=== PATIENT | female | born 1960 | race Caucasian/White ===

== ENCOUNTER → 2016-07-03 | Outpatient (REF) | payer MEDICARE, MEDICAID ==
[~2016-07-03] MED LIST: ACET-71 PO; AZEL0.055; BENZ100C5 PO; CLAR5TAB PO; CLEO300C2 PO; CLIN1CAP5 PO; DRIS50002 PO; IBUP800T23 PO; LEVO125T41 PO; LEVO150T42 PO; LORT5TAB PO; OMEP40CA2 PO; PANT40TA2 PO; PERI0.126 MT; PHEN30TA37 PO; PRAV40TA2 PO; PROA1AER INH; SERT-138 PO; SUCR1TAB56 PO; SYMB80INH INH; [UNRECOGNIZED DRUG - CODE] TOP
[2016-07-03 16:32] LABS: MEAN CORPUSCULAR HEMOGLOBIN 29.9 pg (27.0-33.0); MEAN CORPUSCULAR HGB CONC 32.1 g/dl (32.0-36.5); MEAN CORPUSCULAR VOLUME 93.4 fl (80.0-96.0); RED CELL DISTRIBUTION WIDTH 13.2 % (11.5-14.5); WHITE BLOOD COUNT 8.1 K/mm3 (4.0-10.0)
[2016-07-03 17:47] LABS: ALBUMIN/GLOBULIN RATIO 0.77 (1.00-1.93); ALKALINE PHOSPHATASE 141 U/L (45-117); ALT/SGPT 27 U/L (12-78); ANION GAP 5 MEQ/L (8-16); AST/SGOT 15 U/L (15-37); BILIRUBIN,TOTAL 0.2 MG/DL (0.2-1.0); BLOOD UREA NITROGEN 8 MG/DL (7-18); CALCIUM LEVEL 7.9 MG/DL (8.5-10.1); CARBON DIOXIDE LEVEL 29 MEQ/L (21-32); CHLORIDE LEVEL 106 MEQ/L (98-107); CHOLESTEROL LEVEL 193 MG/DL (<200); CREATININE FOR GFR 0.63 MG/DL (0.55-1.02); GLOMERULAR FILTRATION RATE > 60.0 (>51); GLUCOSE, FASTING 78 MG/DL (70-105); PHENOBARBITAL LEVEL 33.7 UG/ML (15.0-40.0); POTASSIUM SERUM 4.5 MEQ/L (3.5-5.1); SODIUM LEVEL 140 MEQ/L (136-145); TOTAL PROTEIN 6.9 GM/DL (6.4-8.2); TRIGLYCERIDES LEVEL 63 MG/DL (<150)
== END ==
LOC: M SFHCCLAY 10:26
PROVIDERS: ATTEND Nurse Practitioner Family
DX: K27.9 Peptic ulcer, site unspecified, unspecified as acute or chronic, without hemorrhage or perforation (principal); E78.4 Other hyperlipidemia; G40.909 Epilepsy, unspecified, not intractable, without status epilepticus; E03.9 Hypothyroidism, unspecified; E55.9 Vitamin D deficiency, unspecified

== ENCOUNTER → 2016-07-24 | Outpatient (CLI) | payer MEDICARE, MEDICAID ==
--- NOTE | 2016-07-24 08:26 | REPMRS ---
Patient History The patient states she had a clinical breast exam in 07/17 Patient is postmenopausal and is nulliparous. Family history of breast cancer in paternal aunt, pancreatic cancer in brother at age 57, and prostate cancer in brother at age 57. Digital Woman Screen Mammo: July 24, 2016 - Exam #: [id number] Bilateral CC and MLO view(s) were taken. Technologist: Mary Schwartz, Technologist Prior study comparison: June 07, 2015, digital woman screen mammo performed at [facility]. May 19, 2014, digital woman screen mammo performed at [facility]. FINDINGS: There are scattered fibroglandular densities. There has been no change in the appearance of the mammogram from the prior studies. There is a mild amount of scattered fibroglandular density which is fairly symmetric. There is no interval development of dominant mass, architectural distortion, or clustered microcalcification suggestive of malignancy. ASSESSMENT: BI-RADS/ACR category 1 mammogram. Negative. Recommendation Routine screening mammogram in 1 year (for women over age 40). This mammogram was interpreted with the aid of an FDA-approved computer-aided dectection system. Electronically Signed By: Go Brooke MD 07/24/16 0826
== END ==
LOC: M WHC 07:44
PROVIDERS: ATTEND Nurse Practitioner Family
DX: Z12.31 Encounter for screening mammogram for malignant neoplasm of breast (principal); Z78.0 Asymptomatic menopausal state

== ENCOUNTER → 2016-10-16 | Outpatient (REF) | payer MEDICARE, MEDICAID ==
[~2016-10-16] MED LIST changes: -ACET-71 PO; +ACET1TAB16 PO; +CLIN150C14 PO; -CLIN1CAP5 PO; +IBUP1TAB7 PO; -IBUP800T23 PO; -PROA1AER INH; +PROAAER10 INH
[2016-10-16 12:50] LABS: CALCIUM LEVEL 8.8 MG/DL (8.5-10.1)
== END ==
LOC: M SFHCCLAY 08:05
PROVIDERS: ATTEND Nurse Practitioner Family
DX: E03.9 Hypothyroidism, unspecified (principal); E78.4 Other hyperlipidemia; E55.9 Vitamin D deficiency, unspecified

== ENCOUNTER → 2017-03-12 | Outpatient (REF) | payer MEDICARE, MEDICAID ==
[2017-03-12 17:59] LABS: TOTAL 25(OH) VITAMIN D 64.5 NG/ML (30.0-100.0)
[2017-03-12 18:11] LABS: CHOLESTEROL LEVEL 254 MG/DL (<200); CHOLESTEROL RISK RATIO 3.298 (<5); HDL CHOLESTEROL 77 MG/DL (>40); LDL CHOLESTEROL 162.4 MG/DL (<100); NON-HDL-C 177 MG/DL; THYROID STIMULATING HORMONE 0.575 uIU/ML (0.358-3.740); TRIGLYCERIDES LEVEL 73 MG/DL (<150)
== END ==
LOC: M SFHCCLAY 10:07
DX: E78.4 Other hyperlipidemia (principal); E03.9 Hypothyroidism, unspecified; E55.9 Vitamin D deficiency, unspecified
CPT/HCPCS: 84443

== ENCOUNTER → 2017-04-22 | Outpatient (CLI) | payer MEDICARE, MEDICAID | LOC: M CLY 13:12 | DX: R05 Cough (principal) | CPT/HCPCS: 71046; G0463 ==

== ENCOUNTER → 2017-07-21 | Outpatient (REF) | payer MEDICARE, MEDICAID ==
[2017-07-21 11:44] LABS: HEMATOCRIT 36.4 % (36.0-47.0); HEMOGLOBIN 11.9 g/dl (12.0-15.5); MEAN CORPUSCULAR HEMOGLOBIN 30.4 pg (27.0-33.0); MEAN CORPUSCULAR HGB CONC 32.7 g/dl (32.0-36.5); MEAN CORPUSCULAR VOLUME 92.9 fl (80.0-96.0); PLATELET COUNT, AUTOMATED 285 10^3/uL (150-450); RED BLOOD COUNT 3.92 10^6/uL (4.00-5.40); RED CELL DISTRIBUTION WIDTH 15.8 % (11.5-14.5); WHITE BLOOD COUNT 8.1 10^3/uL (4.0-10.0)
[2017-07-21 11:59] LABS: TOTAL 25(OH) VITAMIN D 22.4 NG/ML (30.0-100.0)
[2017-07-21 12:51] LABS: ALBUMIN 3.6 GM/DL (3.2-5.2); ALKALINE PHOSPHATASE 101 U/L (45-117); ALT/SGPT 18 U/L (12-78); ANION GAP 6 MEQ/L (8-16); AST/SGOT 26 U/L (7-37); BILIRUBIN,TOTAL 0.3 MG/DL (0.2-1.0); BLOOD UREA NITROGEN 13 MG/DL (7-18); CALCIUM LEVEL 8.7 MG/DL (8.5-10.1); CARBON DIOXIDE LEVEL 30 MEQ/L (21-32); CHLORIDE LEVEL 103 MEQ/L (98-107); CHOLESTEROL LEVEL 220 MG/DL (<200); CHOLESTEROL RISK RATIO 3.188 (<5); CREATININE FOR GFR 0.85 MG/DL (0.55-1.30); GLOMERULAR FILTRATION RATE > 60.0 (>51); GLUCOSE, FASTING 79 MG/DL (70-100); HDL CHOLESTEROL 69 MG/DL (>40); LDL CHOLESTEROL 134.2 MG/DL (<100); NON-HDL-C 151 MG/DL; PHENOBARBITAL LEVEL 28.3 UG/ML (15.0-40.0); SODIUM LEVEL 139 MEQ/L (136-145); THYROID STIMULATING HORMONE 0.995 uIU/ML (0.358-3.740); TOTAL PROTEIN 7.6 GM/DL (6.4-8.2); TRIGLYCERIDES LEVEL 84 MG/DL (<150)
== END ==
LOC: M SFHCCLAY 08:47
DX: K27.9 Peptic ulcer, site unspecified, unspecified as acute or chronic, without hemorrhage or perforation (principal); E78.4 Other hyperlipidemia; G40.909 Epilepsy, unspecified, not intractable, without status epilepticus; E03.9 Hypothyroidism, unspecified; E55.9 Vitamin D deficiency, unspecified
CPT/HCPCS: 84443

== ENCOUNTER → 2017-08-14 | Outpatient (CLI) | payer MEDICARE, MEDICAID | LOC: M WHC 07:50 | DX: Z12.31 Encounter for screening mammogram for malignant neoplasm of breast (principal) | CPT/HCPCS: 77067 ==

== ENCOUNTER → 2018-01-14 | Outpatient (CLI) | payer MEDICARE, MEDICAID ==
[~2018-01-14] MED LIST changes: -ACET1TAB16 PO; -AZEL0.055; -BENZ100C5 PO; -CLAR5TAB PO; -CLEO300C2 PO; -CLIN150C14 PO; -DRIS50002 PO; -IBUP1TAB7 PO; -LEVO125T41 PO; -LEVO150T42 PO; -LORT5TAB PO; -OMEP40CA2 PO; -PANT40TA2 PO; -PERI0.126 MT; -PHEN30TA37 PO; -PRAV40TA2 PO; -PROAAER10 INH; +PROHANCE 279.3MG/ML 15ML VIAL (A9576) As Ordered; -SERT-138 PO; -SUCR1TAB56 PO; -SYMB80INH INH; -[UNRECOGNIZED DRUG - CODE] TOP
== END ==
LOC: M RAD 09:23
DX: K85.90 Acute pancreatitis without necrosis or infection, unspecified (principal); K44.9 Diaphragmatic hernia without obstruction or gangrene; K80.50 Calculus of bile duct without cholangitis or cholecystitis without obstruction
CPT/HCPCS: A9576

== ENCOUNTER → 2018-03-20 | Outpatient (REF) | payer MEDICARE, MEDICAID ==
[~2018-03-20] MED LIST changes: +ACET1TAB16 PO; +AZEL0.055; +BENZ-18 PO; +CLAR5TAB PO; +CLEO300C2 PO; +CLIN150C14 PO; +DRIS50003 PO; +IBUP1TAB7 PO; +LEVO125T41 PO; +LEVO150T42 PO; +LORT5TAB PO; +OMEP40CA2 PO; +PANT40TA3 PO; +PERI0.126 MT; +PHEN30TA37 PO; +PRAV40TA2 PO; +PROAAER10 INH; -PROHANCE 279.3MG/ML 15ML VIAL (A9576) As Ordered; +SERT-138 PO; +SUCR1TAB56 PO; +SYMB80INH INH; +[UNRECOGNIZED DRUG - CODE] TOP
[2018-03-20 12:24] LABS: BASO # 0.1 10^3/uL (0.0-0.2); BASO % 0.7 % (0.0-1.0); EOS # 0.1 10^3/uL (0.0-0.50); EOS % 0.9 % (0.0-3.0); HEMOGLOBIN 11.6 g/dl (12.0-15.5); LYMPH # 2.8 10^3/uL (1.5-4.5); MEAN CORPUSCULAR HEMOGLOBIN 29.7 pg (27.0-33.0); MEAN CORPUSCULAR HGB CONC 33.1 g/dl (32.0-36.5); MEAN CORPUSCULAR VOLUME 89.5 fl (80.0-96.0); MONO # 1.4 10^3/uL (0.0-0.8); MONO % 18.2 % (0.0-5.0); NEUTROPHILS # 3.1 10^3/uL (1.8-7.7); NEUTROPHILS % 42.1 % (36.0-66.0); PLATELET COUNT, AUTOMATED 287 10^3/uL (150-450); RED BLOOD COUNT 3.91 10^6/uL (4.00-5.40); WHITE BLOOD COUNT 7.4 10^3/uL (4.0-10.0)
[2018-03-20 12:28] LABS: ALBUMIN 3.6 GM/DL (3.2-5.2); ALT/SGPT 13 U/L (12-78); AMYLASE 98 U/L (25-115); BILIRUBIN,DIRECT < 0.1 MG/DL (0.0-0.2); BILIRUBIN,TOTAL 0.3 MG/DL (0.2-1.0); BLOOD UREA NITROGEN 18 MG/DL (7-18); CALCIUM LEVEL 8.8 MG/DL (8.5-10.1); CARBON DIOXIDE LEVEL 32 MEQ/L (21-32); CHLORIDE LEVEL 101 MEQ/L (98-107); CREATININE FOR GFR 0.87 MG/DL (0.55-1.30); GLOMERULAR FILTRATION RATE > 60.0 (>51); GLUCOSE, FASTING 76 MG/DL (70-100); LIPASE 222 U/L (73-393); POTASSIUM SERUM 4.5 MEQ/L (3.5-5.1); SODIUM LEVEL 136 MEQ/L (136-145); TOTAL PROTEIN 7.4 GM/DL (6.4-8.2)
[2018-03-20 12:34] LABS: INR 1.01; PROTHROMBIN TIME 13.4 SECONDS (12.1-14.4)
== END ==
LOC: M LABDRAWC 11:15
PROVIDERS: ATTEND Internal Medicine Gastroenterology
DX: R10.84 Generalized abdominal pain (principal)

== ENCOUNTER → 2018-03-25 | Outpatient (CLI) | payer MEDICARE, MEDICAID ==
[~2018-03-25] MED LIST changes: +GASTROGRAFIN SOLUTION 30ML (Q9963) As Ordered ONE; +ISOVUE-370 76% 100ML VIAL (Q9967) As Ordered ONE; +MONT10TA2 PO; +MULTCAP PO; +TYLETAB14 PO; +ZOFR4TAB16 PO
--- NOTE | 2018-03-26 08:33 | REP ---
Clinical: Generalized abdominal pain. Technique: Axial contrast enhanced images from the lung bases to the pubic symphysis using oral (per protocol) and 100 ml Isovue 370 intravenous contrast material with coronal and sagittal re-formations. Comparison: 12/09/2017. Findings: Lung bases are clear. Small hiatal hernia suggested at the gastroesophageal junction. Liver includes stable 2 cm hypodensity within the periphery of the left lobe likely representing cyst. The patient is status post cholecystectomy with intrahepatic and extrahepatic biliary ductal dilatation which may be compensatory. Atrophic appearance of the spleen noted. Pancreas, bilateral adrenal glands and kidneys are normal. The enteric system is without obstruction or acute inflammatory process. Pelvis demonstrates normal bladder and age-appropriate uterus/adnexa. No ascites. No free air. No adenopathy. Abdominal aorta without aneurysm or dissection. Musculoskeletal structures demonstrate degenerative changes without focal osseous abnormality. Impression: 1. 2 cm hepatic hypodensity cannot be further characterized based on examination and may warrant ultrasound evaluation. 2. Intrahepatic and extrahepatic biliary ductal dilatation with the common bile duct measuring up to approximately 2 cm may warrant ultrasound examination to exclude choledocholithiasis. 3. Stable nonacute findings as described above including hiatal hernia and atrophic appearance to the spleen. Electronically Signed by Nain Armneta MD 03/26/2018 08:24 A
== END ==
LOC: M RAD 14:32
PROVIDERS: ATTEND Internal Medicine Gastroenterology
DX: R93.5 Abnormal findings on diagnostic imaging of other abdominal regions, including retroperitoneum (principal); K44.9 Diaphragmatic hernia without obstruction or gangrene; R10.84 Generalized abdominal pain
CPT/HCPCS: 74177; Q9963; Q9967

== ENCOUNTER 2018-04-09 06:10 | Day surgery (SDC) | payer MEDICARE, MEDICAID ==
[~2018-04-09] VITALS: Ht 152.4 cm; Wt 66.7 kg
[~2018-04-09 06:10] MED LIST changes: -GASTROGRAFIN SOLUTION 30ML (Q9963) As Ordered ONE; -ISOVUE-370 76% 100ML VIAL (Q9967) As Ordered ONE
[2018-04-09] MEDS ORDERED: LR 1,000 ML IV ONE (07:00)
[2018-04-09] MEDS ORDERED: NS 1,000 ML IV ONE (07:00)
[2018-04-09] MEDS ORDERED: ISOVUE-300 61% 50ML VIAL (Q9967) As Ordered ONE (07:19)
[2018-04-09] MEDS ORDERED: MIDAZOLAM INJ 2 MG/2 ML VIAL (J2250) As Ordered ONE (07:23)
[2018-04-09] MEDS ORDERED: fentaNYL 100 MCG/2 ML INJECTION (J3010) As Ordered ONE (07:29)
[2018-04-09] MEDS ORDERED: LIDOCAINE 2% INJ 100 MG/5 ML SDV (FOR ANES.) As Ordered ONE (07:29)
[2018-04-09] MEDS ORDERED: ROCURONIUM BROMIDE 50 MG/5 ML VIAL As Ordered ONE (07:29)
[2018-04-09] MEDS ORDERED: PROPOFOL 200 MG/20 ML VIAL As Ordered ONE (07:29)
[2018-04-09] MEDS ORDERED: dexameTHASONE 4 MG/ML 1ML VIAL (J1100) As Ordered ONE (08:16)
[2018-04-09] MEDS ORDERED: ONDANSETRON 4MG/2ML VIAL (J2405) As Ordered ONE (08:16)
[2018-04-09] MEDS ORDERED: KETOROLAC 60 MG/2 ML VIAL (J1885) As Ordered ONE (08:16)
[2018-04-09] MEDS ORDERED: ePHEDrine SULFATE 25 MG/5 ML(5MG/ML) SYRINGE As Ordered ONE (08:26)
[2018-04-09] MEDS ORDERED: NEOSTIGMINE 10 MG/10 ML VIAL (J2710) As Ordered ONE (09:05)
[2018-04-09] MEDS ORDERED: GLYCOPYRROLATE INJ 0.2 MG/ML 2 ML VIAL As Ordered ONE (09:05)
[2018-04-09] MEDS ORDERED: ONDANSETRON 4MG/2ML VIAL (J2405) IV PRN (09:30)
[2018-04-09] MEDS ORDERED: fentaNYL 100 MCG/2 ML INJECTION (J3010) IV PRN (09:30)
[2018-04-09] MEDS ORDERED: NORCO, ANEXSIA 5/325MG TABLET (HYDROcodone/ACETAMINOPHEN) PO PRN (09:30)
[2018-04-09] MEDS ORDERED: LR 1,000 ML IV SCH ×2 (09:30→10:00)
--- NOTE | 2018-04-09 09:37 | ROOR ---
Patient Name: Karina Avalos Procedure Date: 04/09/2018 6:55 AM Date of : 1960 Age: 58 Room: [facility] Gender: Female Note Status: Finalized Procedure: ERCP Indications: Common bile duct stone(s), Bile duct stone(s), For therapy of bile duct stone(s) Providers: Sarbjit Rodriguez MD Referring MD: Scott Womack Jr, MD Requesting Provider: Medicines: General Anesthesia Complications: No immediate complications. Procedure: Pre-Anesthesia Assessment: - Prior to the procedure, a History and Physical was performed, and patient medications and allergies were reviewed. The patient is competent. The risks and benefits of the procedure and the sedation options and risks were discussed with the patient. All questions were answered and informed consent was obtained. Patient identification and proposed procedure were verified by the physician, the nurse and the anesthesiologist in the procedure room. Mental Status Examination: alert and oriented. Airway Examination: normal oropharyngeal airway and neck mobility. Respiratory Examination: clear to auscultation. CV Examination: normal. Prophylactic Antibiotics: The patient does not require prophylactic antibiotics. Prior Anticoagulants: The patient has taken no previous anticoagulant or antiplatelet agents. ASA Grade Assessment: II - A patient with mild systemic disease. After reviewing the risks and benefits, the patient was deemed in satisfactory condition to undergo the procedure. The anesthesia plan was to use monitored anesthesia care (MAC). Immediately prior to administration of medications, the patient was re-assessed for adequacy to receive sedatives. The heart rate, respiratory rate, oxygen saturations, blood pressure, adequacy of pulmonary ventilation, and response to care were monitored throughout the procedure. The physical status of the patient was re-assessed after the procedure. The Duodenoscope was introduced through the mouth, and advanced to the duodenum and used to inject contrast into the bile duct. The ERCP was accomplished without difficulty. The patient tolerated the procedure well. Findings: The office messenger film was normal. The esophagus was successfully intubated under direct vision. The scope was advanced to a normal major papilla in the descending duodenum without detailed examination of the pharynx, larynx and associated structures, and upper GI tract. The upper GI tract was grossly normal. 0.035 inch x 260 cm straight Hydra Jagwire was passed into the biliary tree. The short-nosed traction sphincterotome was passed over the guidewire and the bile duct was then deeply cannulated. Contrast was injected. I personally interpreted the bile duct images. Ductal flow of contrast was adequate. Image quality was adequate. Contrast extended to the entire biliary tree. The main bile duct contained multiple stones, the largest of which was 10 mm in diameter. The main bile duct was diffusely dilated, with a stone causing an obstruction. The largest diameter was 20 mm. Biliary sphincterotomy was made with a monofilament traction (standard) sphincterotome using ERBE electrocautery. There was no post-sphincterotomy bleeding. To discover objects, the biliary tree was swept with a 15 mm balloon starting at the bifurcation. Stones were large and did not come out with balloon sweep. Lithotripsy with the mechanical lithotripter was successful for stone fragmentation, but the removal of stone and debris was incomplete. One 10 Fr by 7 cm plastic stent with a single external flap and a single internal flap was placed into the common bile duct. Bile flowed through the stent. The stent was in good position. Impression: - The entire main bile duct was dilated, with a stone causing an obstruction. - Choledocholithiasis was found. - A biliary sphincterotomy was performed. - The biliary tree was swept. - Lithotripsy was successful for stone fragmentation, but the removal of stone and debris was incomplete. - One plastic stent was placed into the common bile duct. Recommendation: - The patient will be observed post-procedure, until all discharge criteria are met. - Patient has a contact number available for emergencies. The signs and symptoms of potential delayed complications were discussed with the patient. Return to normal activities tomorrow. Written discharge instructions were provided to the patient. - Avoid aspirin and nonsteroidal anti-inflammatory medicines. - Full liquid diet today, then advance as tolerated to resume previous diet. - Use Actigall (ursodiol) 300 mg PO BID for 4 weeks. - Repeat ERCP in 6 weeks to remove stent. - Return to GI clinic in [facility] (address [address], [address], [place] [address]) in 4 -- 6 weeks. Please call GI clinic @ [phone] for apppointment date and time. - Return to primary care physician. Sarbjit Rodriguez MD Sarbjit Rodriguez MD 04/09/2018 9:36:44 AM This report has been signed electronically. Number of Addenda: 0 Note Initiated On: 04/09/2018 6:55 AM Estimated Blood Loss: Estimated blood loss was minimal.
--- NOTE | 2018-04-09 10:18 | REP ---
ERCP: 102 views. History: Common bile duct stone. 2 minutes 39 seconds fluoroscopy time is reported. Findings: A sequence of 102 last image hold fluoroscopically obtained spot radiographs of the abdomen document common bile duct cannulation, contrast injection, balloon catheter manipulation and biliary stent placement. Multiple choledocholiths are noted. The common bile duct is dilated. Electronically Signed by Don Brooke MD 04/09/2018 10:17 P
[2018-04-09 10:50] VITALS: BP 120/60
== END 2018-04-09 11:20 | disposition home or self-care (01) ==
LOC: M SDC 06:10
PROVIDERS: ATTEND Internal Medicine Gastroenterology
DX: K80.51 Calculus of bile duct without cholangitis or cholecystitis with obstruction (principal); E03.9 Hypothyroidism, unspecified; E78.5 Hyperlipidemia, unspecified; K21.9 Gastro-esophageal reflux disease without esophagitis; F41.9 Anxiety disorder, unspecified; Z79.899 Other long term (current) drug therapy; Z88.0 Allergy status to penicillin; Z88.8 Allergy status to other drugs, medicaments and biological substances; F79 Unspecified intellectual disabilities
CPT/HCPCS: 43265; 43274; 74330; C1876; J1100; J1885; J2250; J2405; J2710; J3010; Q9967

== ENCOUNTER → 2018-04-29 | Outpatient (REF) | payer MEDICARE, MEDICAID ==
[2018-04-29 13:36] LABS: HEMATOCRIT 37.3 % (36.0-47.0); HEMOGLOBIN 12.4 g/dl (12.0-15.5); MEAN CORPUSCULAR HEMOGLOBIN 30.3 pg (27.0-33.0); MEAN CORPUSCULAR HGB CONC 33.2 g/dl (32.0-36.5); MEAN CORPUSCULAR VOLUME 91.2 fl (80.0-96.0); PLATELET COUNT, AUTOMATED 335 10^3/uL (150-450); RED BLOOD COUNT 4.09 10^6/uL (4.00-5.40); WHITE BLOOD COUNT 8.7 10^3/uL (4.0-10.0)
[2018-04-29 13:45] LABS: ALBUMIN 3.7 GM/DL (3.2-5.2); ALT/SGPT 13 U/L (12-78); BILIRUBIN,TOTAL 0.3 MG/DL (0.2-1.0); BLOOD UREA NITROGEN 10 MG/DL (7-18); CALCIUM LEVEL 9.1 MG/DL (8.5-10.1); CARBON DIOXIDE LEVEL 29 MEQ/L (21-32); CHLORIDE LEVEL 101 MEQ/L (98-107); CHOLESTEROL LEVEL 244 MG/DL (<200); CHOLESTEROL RISK RATIO 3.485 (<5); CREATININE FOR GFR 0.81 MG/DL (0.55-1.30); GLOMERULAR FILTRATION RATE > 60.0 (>51); GLUCOSE, FASTING 80 MG/DL (70-100); HDL CHOLESTEROL 70 MG/DL (>40); LDL CHOLESTEROL 153 MG/DL (<100); NON-HDL-C 174 MG/DL; PHENOBARBITAL LEVEL 32.9 UG/ML (15.0-40.0); POTASSIUM SERUM 4.4 MEQ/L (3.5-5.1); SODIUM LEVEL 137 MEQ/L (136-145); THYROID STIMULATING HORMONE 0.471 uIU/ML (0.358-3.740); TOTAL 25(OH) VITAMIN D 26.4 NG/ML (30.0-100.0); TOTAL PROTEIN 7.5 GM/DL (6.4-8.2); TRIGLYCERIDES LEVEL 104 MG/DL (<150)
== END ==
LOC: M SFHCCLAY 08:37
PROVIDERS: ATTEND Nurse Practitioner Family
DX: E03.9 Hypothyroidism, unspecified (principal); E78.49 Other hyperlipidemia; G40.909 Epilepsy, unspecified, not intractable, without status epilepticus; E55.9 Vitamin D deficiency, unspecified

== ENCOUNTER 2018-05-28 06:10 | Day surgery (SDC) | payer MEDICARE, MEDICAID ==
[~2018-05-28] VITALS: Ht 154.9 cm; Wt 67.1 kg
[~2018-05-28 06:10] MED LIST changes: +LIDOCAINE 1% MDV 20ML VIAL SQ PRN; +URSO300C3 PO
[2018-05-28] MEDS ORDERED: ISOVUE-300 61% 50ML VIAL (Q9967) As Ordered ONE (07:10)
[2018-05-28] MEDS ORDERED: ONDANSETRON 4MG/2ML VIAL (J2405) As Ordered ONE (07:13)
[2018-05-28] MEDS ORDERED: PROPOFOL 200 MG/20 ML VIAL As Ordered ONE (07:13)
[2018-05-28] MEDS ORDERED: GLYCOPYRROLATE INJ 0.2 MG/ML 2 ML VIAL As Ordered ONE (07:13)
[2018-05-28] MEDS ORDERED: LIDOCAINE 2% INJ 100 MG/5 ML SDV (FOR ANES.) As Ordered ONE (07:13)
[2018-05-28] MEDS ORDERED: dexameTHASONE 4 MG/ML 1ML VIAL (J1100) As Ordered ONE (07:13)
[2018-05-28] MEDS ORDERED: NEOSTIGMINE 10 MG/10 ML VIAL (J2710) As Ordered ONE (07:13)
[2018-05-28] MEDS ORDERED: ROCURONIUM BROMIDE 50 MG/5 ML VIAL As Ordered ONE (07:13)
[2018-05-28] MEDS ORDERED: fentaNYL 100 MCG/2 ML INJECTION (J3010) As Ordered ONE (07:15)
[2018-05-28] MEDS ORDERED: MIDAZOLAM INJ 2 MG/2 ML VIAL (J2250) As Ordered ONE (07:15)
[2018-05-28] MEDS ORDERED: ePHEDrine SULFATE 25 MG/5 ML(5MG/ML) SYRINGE As Ordered ONE (08:13)
[2018-05-28] MEDS ORDERED: CIPROFLOXACIN/D5W 400 MG/200 ML BAG (J0744) As Ordered ONE (09:56)
[2018-05-28] MEDS ORDERED: LR 1,000 ML IV SCH ×2 (10:15→11:00)
[2018-05-28] MEDS ORDERED: ONDANSETRON 4MG/2ML VIAL (J2405) IV PRN (10:15)
[2018-05-28] MEDS ORDERED: PERCOCET 5MG/325MG TAB PO PRN (10:15)
[2018-05-28] MEDS ORDERED: fentaNYL 100 MCG/2 ML INJECTION (J3010) IV PRN (10:15)
--- NOTE | 2018-05-28 10:15 | ROOR ---
Patient Name: Karina Avalos Procedure Date: 05/28/2018 7:30 AM Date of : 1960 Age: 58 Room: [facility] Gender: Female Note Status: Finalized Procedure: ERCP Indications: Common bile duct stone(s) Providers: Sarbjit Rodriguez MD Referring MD: Scott Womack Jr, MD Requesting Provider: Medicines: Monitored Anesthesia Care Complications: No immediate complications. Procedure: Pre-Anesthesia Assessment: - Prior to the procedure, a History and Physical was performed, and patient medications and allergies were reviewed. The patient is competent. The risks and benefits of the procedure and the sedation options and risks were discussed with the patient. All questions were answered and informed consent was obtained. Patient identification and proposed procedure were verified by the physician, the nurse and the anesthesiologist in the procedure room. Mental Status Examination: alert and oriented. Airway Examination: normal oropharyngeal airway and neck mobility. Respiratory Examination: clear to auscultation. CV Examination: normal. Prophylactic Antibiotics: The patient does not require prophylactic antibiotics. Prior Anticoagulants: The patient has taken no previous anticoagulant or antiplatelet agents. ASA Grade Assessment: III - A patient with severe systemic disease. After reviewing the risks and benefits, the patient was deemed in satisfactory condition to undergo the procedure. The anesthesia plan was to use general anesthesia. Immediately prior to administration of medications, the patient was re-assessed for adequacy to receive sedatives. The heart rate, respiratory rate, oxygen saturations, blood pressure, adequacy of pulmonary ventilation, and response to care were monitored throughout the procedure. The physical status of the patient was re-assessed after the procedure. The Duodenoscope was introduced through the mouth, and advanced to the duodenum and used to inject contrast into the bile duct. The ERCP was accomplished without difficulty. The patient tolerated the procedure well. Findings: A biliary stent was visible on the sales coach film. The esophagus was successfully intubated under direct vision. The scope was advanced from the mouth to the duodenum. The pharynx, larynx and associated structures, as well as the upper GI tract, were normal. One stent which had been placed through the major papilla into the biliary tree was no longer visible. It had migrated into the duct. A biliary sphincterotomy had been performed. The sphincterotomy appeared open. 0.035 inch x 260 cm straight Hydra Jagwire was passed into the biliary tree. The short-nosed traction sphincterotome was passed over the guidewire and the bile duct was then deeply cannulated. Contrast was injected. I personally interpreted the bile duct images. Ductal flow of contrast was adequate. Image quality was adequate. Contrast extended to the entire biliary tree. The main bile duct contained multiple stones, the largest of which was 10 mm in diameter. One stent which had been placed through the major papilla into the biliary tree was no longer visible. It had migrated into the duct. Lithotripsy with the mechanical lithotripter was successful for stone fragmentation, but the removal of stone and debris was incomplete. The main bile duct contained multiple stones. One stent was removed from the biliary tree using a basket. One 10 Fr by 4 cm covered metal stent was placed 3 cm into the common bile duct. Bile flowed through the stent. The stent was in good position. Impression: - A previously placed stent had migrated into the biliary tree. - Prior biliary sphincterotomy appeared open. - A previously placed stent had migrated into the biliary tree. - Choledocholithiasis was found. Partial Removal was accomplished with balloon sweep and Mechanical lithotripter. - Lithotripsy was successful for stone fragmentation, but the removal of stone and debris was incomplete. - One stent was removed from the biliary tree. - One covered metal stent was placed into the common bile duct. Recommendation: - The patient will be observed post-procedure, until all discharge criteria are met. - Patient has a contact number available for emergencies. The signs and symptoms of potential delayed complications were discussed with the patient. Return to normal activities tomorrow. Written discharge instructions were provided to the patient. - Avoid aspirin and nonsteroidal anti-inflammatory medicines. - Clear liquid diet for 1 day, then advance as tolerated to low fat diet. - Cipro (ciprofloxacin) 400 mg IV q 12 hr X 1 dose. - Repeat ERCP in 1 month to remove stent. - Return to GI clinic 1 - 2 weeks. Please call GI clinic @ [phone] for apppointment date and time. - Return to primary care physician. Sarbjit Rodriguez MD Sarbjit Rodriguez MD 05/28/2018 10:15:19 AM Electronically signed by Sarbjit Rodriguez MD Number of Addenda: 0 Note Initiated On: 05/28/2018 7:30 AM Estimated Blood Loss: Estimated blood loss: none.
[2018-05-28] MEDS ORDERED: LACTATED RINGER'S 1000 ML IV ONE (11:00)
[2018-05-28] MEDS ORDERED: METOCLOPRAMIDE INJ 10MG/2ML VIAL (J2765) As Ordered ONE (11:03)
[2018-05-28] MEDS ORDERED: METOCLOPRAMIDE INJ 10MG/2ML VIAL (J2765) IV PRN (11:15)
--- NOTE | 2018-05-28 11:45 | REP ---
ERCP: 19 VIEWS. HISTORY: Choledocholithiasis. Common bile duct stent. COMPARISON STUDY: April 09, 2018 Fluoroscopy time is 2 minutes 42 seconds. FINDINGS: A common bile duct stent is again noted. A sequence of 19 fluoroscopically obtained spot radiographs of the right upper quadrant obtained endoscopically documents guidewire cannulation, contrast injection, and re-stenting of the common bile duct with a Wallstent noted in place. Filling defects persists in a dilated common bile duct consistent with choledocholithiasis. Electronically Signed by Don Brooke MD 05/28/2018 12:13 P
[2018-05-28 12:30] VITALS: BP 141/63
[2018-05-28] MEDS ORDERED: MAGN1TAB25 PO (13:02)
[2018-05-28 14:00] VITALS: BP 141/65
[2018-05-28] MEDS ORDERED: PANTOPRAZOLE 40MG INJ (PROTONIX) (C9113) IV ONE (15:00)
[2018-05-28 16:24] LABS: HEMATOCRIT 36.6 % (36.0-47.0); HEMOGLOBIN 12.3 g/dl (12.0-15.5); MEAN CORPUSCULAR HEMOGLOBIN 30.4 pg (27.0-33.0); MEAN CORPUSCULAR HGB CONC 33.6 g/dl (32.0-36.5); MEAN CORPUSCULAR VOLUME 90.6 fl (80.0-96.0); PLATELET COUNT, AUTOMATED 314 10^3/uL (150-450); RED BLOOD COUNT 4.04 10^6/uL (4.00-5.40)
[2018-05-28 17:19] LABS: ALBUMIN 3.3 GM/DL (3.2-5.2); ALT/SGPT 12 U/L (12-78); BILIRUBIN,DIRECT < 0.1 MG/DL (0.0-0.2); BILIRUBIN,TOTAL 0.2 MG/DL (0.2-1.0); BLOOD UREA NITROGEN 9 MG/DL (7-18); CALCIUM LEVEL 9.1 MG/DL (8.5-10.1); CARBON DIOXIDE LEVEL 29 MEQ/L (21-32); CHLORIDE LEVEL 106 MEQ/L (98-107); CREATININE FOR GFR 0.76 MG/DL (0.55-1.30); GLOMERULAR FILTRATION RATE > 60.0 (>51); GLUCOSE, FASTING 98 MG/DL (70-100); POTASSIUM SERUM 4.7 MEQ/L (3.5-5.1); SODIUM LEVEL 141 MEQ/L (136-145); TOTAL PROTEIN 7.2 GM/DL (6.4-8.2)
[2018-05-28 17:56] VITALS: BP 120/60
[2018-05-28] MEDS ORDERED: CIPROFLOXACIN 400 MG in APPROPRIATE DILUENT 1 EA IV SCH (22:00)
[2018-05-29] MEDS ORDERED: LEVOTHYROXINE 125MCG TABLET (0.125MG) PO SCH (06:00)
== END 2018-05-28 18:12 | disposition home or self-care (01) ==
LOC: M SDC 06:10 → M MSPAV 12:37 → M SDC 18:12
PROVIDERS: ATTEND Internal Medicine Gastroenterology
DX: T85.520A Displacement of bile duct prosthesis, initial encounter (principal); K80.50 Calculus of bile duct without cholangitis or cholecystitis without obstruction; Z46.59 Encounter for fitting and adjustment of other gastrointestinal appliance and device; J45.909 Unspecified asthma, uncomplicated; K21.9 Gastro-esophageal reflux disease without esophagitis; F41.9 Anxiety disorder, unspecified; F32.9 Major depressive disorder, single episode, unspecified; F79 Unspecified intellectual disabilities; Z88.0 Allergy status to penicillin; Z88.8 Allergy status to other drugs, medicaments and biological substances; Z79.899 Other long term (current) drug therapy
CPT/HCPCS: 36415; 43265; 43276; 74330; 80048; 80076; 85027; C1874; C1887; C9113; J0744; J1100; J2250; J2405; J2710; J2765; J3010; Q9967

== ENCOUNTER → 2018-06-08 | Outpatient (CLI) | payer MEDICARE, MEDICAID ==
[~2018-06-08] MED LIST changes: -LIDOCAINE 1% MDV 20ML VIAL SQ PRN; +MAGN1TAB26 PO
--- NOTE | 2018-06-08 08:47 | REP ---
Abdominal right upper quadrant ultrasound: The patient had a recent ERCP with biliary duct stent placement. Additionally, the patient has a cholecystectomy. The common biliary duct is dilated measuring up to 13 mm in transverse diameter. There are multiple calculi within the dilated common biliary duct. The stent is not optimally visualized by ultrasound. There is no intrahepatic biliary duct dilation. Occasional pneumobilia is identified, likely secondary to the stent. The visualized pancreatic parenchyma is unremarkable. There is no right renal hydronephrosis, calculus, mass or cyst. The right kidney measures 9.5 x 4.6 x 3.7 cm and is normal size. There is no right upper quadrant free fluid. Doppler assessment of the portal vein demonstrates a normal diameter of 1.3 cm and a normal flow velocity of 23.2 cm/sec Impression: Dilated common biliary duct. Multiple common biliary duct calculi. Recent common biliary duct stent placement. No intrahepatic biliary duct dilatation. Occasional pneumobilia. Electronically Signed by Juarez Burch MD 06/08/2018 08:39 A
== END ==
LOC: M RAD 07:09
PROVIDERS: ATTEND Internal Medicine Gastroenterology
DX: K80.51 Calculus of bile duct without cholangitis or cholecystitis with obstruction (principal); K83.8 Other specified diseases of biliary tract; Z96.89 Presence of other specified functional implants

== ENCOUNTER → 2018-08-07 | Outpatient (CLI) | payer MEDICARE, MEDICAID ==
--- NOTE | 2018-08-07 13:49 | REP ---
Chest two views HISTORY: Bronchitis Comparison: 04/22/2017 The lungs are clear. The heart is normal in size. The pulmonary vasculature is normal in appearance. The bony structure is intact. IMPRESSION: No acute disease.
== END ==
LOC: M CLY 10:54
PROVIDERS: ATTEND Nurse Practitioner Family
DX: J40 Bronchitis, not specified as acute or chronic (principal)
CPT/HCPCS: 71046; G0463

== ENCOUNTER → 2018-09-16 | Outpatient (CLI) | payer MEDICARE, MEDICAID ==
--- NOTE | 2018-09-16 09:52 | REP ---
RIGHT UPPER QUADRANT ULTRASOUND: Real-time sonographic evaluation of the right upper quadrant was performed. The patient has had a prior cholecystectomy. There is no intrahepatic biliary dilatation. Common bile duct measures 11 mm. It was 14 mm on the ultrasound of 06/08/2018 when there were multiple stones in the common bile duct. No definite stones are seen in the common bile duct at this time. Liver is normal in size and homogenous in echotexture with no gross mass. The pancreas demonstrates no gross mass but it not well seen due to overlying bowel gas. Right kidney demonstrates no hydronephrosis with normal size 9.5 cm in length. There is no free fluid. IMPRESSION:Status-post cholecystectomy. Common bile duct 11 mm. No definite choledocholithiasis. No ascites. Electronically Signed by Juarez Arce MD 09/18/2018 12:53 P
== END ==
LOC: M RAD 08:02
PROVIDERS: ATTEND Internal Medicine Gastroenterology
DX: K80.50 Calculus of bile duct without cholangitis or cholecystitis without obstruction (principal)

== ENCOUNTER → 2018-10-28 | Outpatient (REF) | payer MEDICARE, MEDICAID ==
[2018-10-28 16:40] LABS: CHOLESTEROL RISK RATIO 2.72 (<5)
[2018-10-28 16:47] LABS: TOTAL 25(OH) VITAMIN D 39.4 NG/ML (30.0-100.0)
== END ==
LOC: M SFHCCLAY 10:00
PROVIDERS: ATTEND Nurse Practitioner Family
DX: E78.49 Other hyperlipidemia (principal); E55.9 Vitamin D deficiency, unspecified; Z79.51 Long term (current) use of inhaled steroids; Z79.899 Other long term (current) drug therapy

== ENCOUNTER → 2018-12-14 | Outpatient (REF) | payer MEDICARE, MEDICAID ==
[~2018-12-14] MED LIST changes: -OMEP40CA2 PO; +OMEP40CA97 PO
[2018-12-14 16:28] LABS: ALBUMIN 3.6 GM/DL (3.2-5.2); BASO % 0.3 % (0.0-1.0); BILIRUBIN,TOTAL 0.4 MG/DL (0.2-1.0); CALCIUM LEVEL 9.2 MG/DL (8.5-10.1); CREATININE FOR GFR 3.65 MG/DL (0.55-1.30); EOS % 0.3 % (0.0-3.0); GLOMERULAR FILTRATION RATE 13.7 (>51); HEMATOCRIT 36.4 % (36.0-47.0); HEMOGLOBIN 11.9 g/dl (12.0-15.5); LYMPH # 1.8 10^3/uL (1.5-5.0); LYMPH % 16.9 % (24.0-44.0); MEAN CORPUSCULAR HEMOGLOBIN 28.7 pg (27.0-33.0); MEAN CORPUSCULAR HGB CONC 32.7 g/dl (32.0-36.5); MEAN CORPUSCULAR VOLUME 87.9 fl (80.0-96.0); MONO % 19.1 % (0.0-5.0); NEUTROPHILS # 6.9 10^3/uL (1.5-8.5); PLATELET COUNT, AUTOMATED 375 10^3/uL (150-450); POTASSIUM SERUM 4.9 MEQ/L (3.5-5.1); RED BLOOD COUNT 4.14 10^6/uL (4.00-5.40); TOTAL PROTEIN 7.7 GM/DL (6.4-8.2); WHITE BLOOD COUNT 10.9 10^3/uL (4.0-10.0)
[2018-12-14 17:01] LABS: MONO # 2.1 10^3/uL (0.0-0.8)
== END ==
LOC: M SFHCCLAY 11:20
PROVIDERS: ATTEND Family Medicine
DX: K52.9 Noninfective gastroenteritis and colitis, unspecified (principal)
CPT/HCPCS: 36415; 80053; 85025; G0463

== ENCOUNTER → 2019-04-12 | Outpatient (REF) | payer MEDICARE, MEDICAID ==
[~2019-04-12] MED LIST changes: -MONT10TA2 PO; +MONT10TA4 PO
[2019-04-12 13:18] LABS: HEMOGLOBIN 11.5 g/dl (12.0-15.5); MEAN CORPUSCULAR HGB CONC 32.9 g/dl (32.0-36.5); MEAN CORPUSCULAR VOLUME 91.4 fl (80.0-96.0); PLATELET COUNT, AUTOMATED 293 10^3/uL (150-450); RED BLOOD COUNT 3.83 10^6/uL (4.00-5.40); WHITE BLOOD COUNT 8.2 10^3/uL (4.0-10.0)
[2019-04-12 13:32] LABS: ALBUMIN 3.8 GM/DL (3.2-5.2); ALT/SGPT 16 U/L (12-78); BILIRUBIN,TOTAL 0.3 MG/DL (0.2-1.0); BLOOD UREA NITROGEN 12 MG/DL (7-18); CALCIUM LEVEL 9.6 MG/DL (8.5-10.1); CARBON DIOXIDE LEVEL 32 MEQ/L (21-32); CHLORIDE LEVEL 104 MEQ/L (98-107); CHOLESTEROL LEVEL 225 MG/DL (<200); CHOLESTEROL RISK RATIO 2.812 (<5); CREATININE FOR GFR 0.79 MG/DL (0.55-1.30); GLOMERULAR FILTRATION RATE > 60.0 (>51); GLUCOSE, FASTING 87 MG/DL (70-100); HDL CHOLESTEROL 80 MG/DL (>40); LDL CHOLESTEROL 133 MG/DL (<100); NON-HDL-C 145 MG/DL; PHENOBARBITAL LEVEL 36.3 UG/ML (15.0-40.0); POTASSIUM SERUM 4.1 MEQ/L (3.5-5.1); SODIUM LEVEL 140 MEQ/L (136-145); TOTAL 25(OH) VITAMIN D 75.5 NG/ML (30.0-100.0); TOTAL PROTEIN 7.5 GM/DL (6.4-8.2); TRIGLYCERIDES LEVEL 62 MG/DL (<150)
== END ==
LOC: M SFHCCLAY 07:54
PROVIDERS: ATTEND Nurse Practitioner Family
DX: K27.9 Peptic ulcer, site unspecified, unspecified as acute or chronic, without hemorrhage or perforation (principal); E78.49 Other hyperlipidemia; G40.909 Epilepsy, unspecified, not intractable, without status epilepticus; E03.9 Hypothyroidism, unspecified; E55.9 Vitamin D deficiency, unspecified; Z79.51 Long term (current) use of inhaled steroids; Z79.899 Other long term (current) drug therapy

== ENCOUNTER → 2019-05-21 | Outpatient (REF) | payer MEDICARE, MEDICAID ==
[2019-05-21 11:46] LABS: FERRITIN 13 NG/ML (8-252); IRON (FE) 33 UG/DL (50-170); PERCENT SATURATION 9.7 % (13.2-45.0); TOTAL IRON BINDING CAPACITY 340 UG/DL (250-450)
[2019-05-21 11:52] LABS: VITAMIN B12 LEVEL 535 PG/ML (247-911)
[2019-05-21 11:54] LABS: FOLATE > 24.0 NG/ML (>5.4)
== END ==
LOC: M SFHCCLAY 07:23
PROVIDERS: ATTEND Nurse Practitioner Family
DX: D64.9 Anemia, unspecified (principal)

== ENCOUNTER → 2019-08-24 | Outpatient (REF) | payer MEDICARE, MEDICAID ==
[2019-08-24 12:28] LABS: ALBUMIN 3.4 GM/DL (3.2-5.2); ALT/SGPT 28 U/L (12-78); BILIRUBIN,TOTAL 0.3 MG/DL (0.2-1.0); BLOOD UREA NITROGEN 12 MG/DL (7-18); CALCIUM LEVEL 9.5 MG/DL (8.5-10.1); CARBON DIOXIDE LEVEL 33 MEQ/L (21-32); CHLORIDE LEVEL 104 MEQ/L (98-107); CREATININE FOR GFR 0.76 MG/DL (0.55-1.30); GLOMERULAR FILTRATION RATE > 60.0 (>51); GLUCOSE, FASTING 77 MG/DL (70-100); POTASSIUM SERUM 4.6 MEQ/L (3.5-5.1); SODIUM LEVEL 140 MEQ/L (136-145); TOTAL PROTEIN 7.7 GM/DL (6.4-8.2)
== END ==
LOC: M SFHCCLAY 08:50
PROVIDERS: ATTEND Nurse Practitioner Family
DX: K85.90 Acute pancreatitis without necrosis or infection, unspecified (principal)

== ENCOUNTER → 2019-11-01 | Outpatient (CLI) | payer MEDICARE, MEDICAID ==
[~2019-11-01] MED LIST changes: +PANT40TA29 PO; -PANT40TA3 PO
--- NOTE | 2019-11-01 09:31 | REPMRS ---
Patient History The patient states she had a clinical breast exam in September 2019. Family history of breast cancer in paternal aunt, pancreatic cancer at age 57 and prostate cancer at age 57 in brother. No Hormone Replacement Therapy 3D TOMOSYNTHESIS WAS PERFORMED. [facility] risk for [facility] cancer is 16.8%. VOLPARA DENSITY B. Digital Woman Screen Mammo: November 01, 2019 - Exam #: [id number] Bilateral CC and MLO view(s) were taken. Technologist: Jory Padron Technologist Prior study comparison: September 22, 2018, bilateral digital woman screen mammo performed at [facility]. August 14, 2017, bilateral digital woman screen mammo performed at [facility]. FINDINGS: There are scattered fibroglandular densities. There has been no change in the appearance of the mammogram from the prior studies. There is a mild amount of residual fibroglandular tissue which is fairly symmetric. There is no interval development of dominant mass, architectural distortion, or clustered microcalcification suggestive of malignancy. Assessment: BI-RADS/ACR category 1 mammogram. Negative Mammogram. Recommendation Routine screening mammogram in 1 year (for women over age 40). This mammogram was interpreted with the aid of an FDA-approved computer-aided dectection system. Electronically Signed By: Juarez Arce MD 11/01/19 0030
== END ==
LOC: M WHC 08:02
PROVIDERS: ATTEND Nurse Practitioner Family
DX: Z12.31 Encounter for screening mammogram for malignant neoplasm of breast (principal)

== ENCOUNTER → 2019-11-29 | Outpatient (REF) | payer MEDICARE, MEDICAID ==
[2019-11-29 12:41] LABS: HEMATOCRIT 36.1 % (36.0-47.0); HEMOGLOBIN 11.9 g/dl (12.0-15.5); MEAN CORPUSCULAR HEMOGLOBIN 30.1 pg (27.0-33.0); MEAN CORPUSCULAR VOLUME 91.2 fl (80.0-96.0); PLATELET COUNT, AUTOMATED 289 10^3/uL (150-450); RED BLOOD COUNT 3.96 10^6/uL (4.00-5.40)
[2019-11-29 12:56] LABS: ALBUMIN 3.5 GM/DL (3.2-5.2); ALT/SGPT 22 U/L (12-78); BILIRUBIN,TOTAL 0.2 MG/DL (0.2-1.0); BLOOD UREA NITROGEN 18 MG/DL (7-18); CALCIUM LEVEL 9.8 MG/DL (8.5-10.1); CARBON DIOXIDE LEVEL 30 MEQ/L (21-32); CHLORIDE LEVEL 104 MEQ/L (98-107); CHOLESTEROL LEVEL 243 MG/DL (<200); CHOLESTEROL RISK RATIO 3.197 (<5); CREATININE FOR GFR 0.82 MG/DL (0.55-1.30); FERRITIN 43 NG/ML (8-252); FOLATE > 24.0 NG/ML (>5.4); GLOMERULAR FILTRATION RATE > 60.0 (>51); GLUCOSE, FASTING 72 MG/DL (70-100); HDL CHOLESTEROL 76 MG/DL (>40); IRON (FE) 86 UG/DL (50-170); LDL CHOLESTEROL 156 MG/DL (<100); NON-HDL-C 167 MG/DL; POTASSIUM SERUM 4.4 MEQ/L (3.5-5.1); SODIUM LEVEL 138 MEQ/L (136-145); TOTAL 25(OH) VITAMIN D 66.7 NG/ML (30.0-100.0); TOTAL IRON BINDING CAPACITY 287 UG/DL (250-450); TOTAL PROTEIN 7.3 GM/DL (6.4-8.2); TRIGLYCERIDES LEVEL 54 MG/DL (<150); VITAMIN B12 LEVEL 508 PG/ML (247-911)
== END ==
LOC: M SFHCCLAY 11:07
PROVIDERS: ATTEND Nurse Practitioner Family
DX: F32.9 Major depressive disorder, single episode, unspecified (principal); E78.5 Hyperlipidemia, unspecified; E55.9 Vitamin D deficiency, unspecified; K27.9 Peptic ulcer, site unspecified, unspecified as acute or chronic, without hemorrhage or perforation

== ENCOUNTER → 2020-07-20 | Outpatient (REF) | payer MEDICARE, MEDICAID ==
[~2020-07-20] MED LIST changes: -CLIN150C14 PO; +CLIN150C15 PO; +MONT10TA10 PO; -MONT10TA4 PO
[2020-07-20 13:03] LABS: CHOLESTEROL RISK RATIO 2.931 (<5); PHENOBARBITAL LEVEL 32.5 UG/ML (15.0-40.0); THYROID STIMULATING HORMONE 1.95 uIU/ML (0.358-3.740)
[2020-07-20 13:28] LABS: TOTAL 25(OH) VITAMIN D 55.7 NG/ML (30.0-100.0)
== END ==
LOC: M SFHCCLAY 09:16
PROVIDERS: ATTEND Nurse Practitioner Family
DX: E78.5 Hyperlipidemia, unspecified (principal); G40.909 Epilepsy, unspecified, not intractable, without status epilepticus; E03.9 Hypothyroidism, unspecified; E55.9 Vitamin D deficiency, unspecified

== ENCOUNTER → 2020-10-20 | Outpatient (REF) | payer MEDICARE, MEDICAID ==
[~2020-10-20] MED LIST changes: -CLIN150C15 PO; +CLIN150C17 PO; +OMEP40CA4 PO; -OMEP40CA97 PO; -PHEN30TA37 PO; +PHEN30TA46 PO
[2020-10-20 13:07] LABS: CHOLESTEROL RISK RATIO 3.024 (<5)
== END ==
LOC: M SFHCCLAY 08:11
PROVIDERS: ATTEND Nurse Practitioner Family
DX: E78.49 Other hyperlipidemia (principal)

== ENCOUNTER → 2020-11-29 | Outpatient (CLI) | payer MEDICARE, MEDICAID ==
--- NOTE | 2020-11-29 11:30 | REPMRS ---
Patient History The patient states she had a clinical breast exam in 07/21. Patient is postmenopausal and is nulliparous. Family history of breast cancer in paternal aunt, pancreatic cancer at age 57 and prostate cancer at age 57 in brother. No Hormone Replacement Therapy Patient states no breast complaints today. Patient has signed MRS History Sheet. Digital Woman Screen Mammo: November 29, 2020 - Exam #: [id number] Bilateral CC and MLO view(s) were taken. Technologist: Charlotte Wilson, Aquatic Director Prior study comparison: November 01, 2019, bilateral digital woman screen mammo performed at [facility]. September 22, 2018, bilateral digital woman screen mammo performed at [facility]. FINDINGS: The breast tissue is extremely dense which could obscure a lesion on mammography. Screening. Digital screening (2D) mammography was performed bilaterally in the CC and MLO projections. Additionally, breast tomosynthesis (3D mammography) was performed bilaterally in the CC and MLO projections. Todays exam was compared to the prior exam/exams. By history, the patient has no complaints of a palpable breast abnormality or other significant breast complaints. The breasts are unchanged in size and shape. Once again, dense heterogenous fibroglandular elements are seen bilaterally in a stable appearing pattern but to such a degree that the sensitivity of the mammogram in detecting cancer is decreased.There are no karla-soft tissue densities or spiculated masses. There is no internal architectural distortion. Once again, stable benign appearing calcifications are seen.There are no suspicious karla-calcific clusters. Skin thickening or nipple retraction is not present. IMPRESSION: BI-RADS Category 2- Benign Findings. There is no evidence of malignant alteration of the breasts. Followup examination recommended in one year. The Volpara volumetric breast density category is D, the breasts are extremely dense which lowers the sensitivity of mammography. This mammogram was read with the assistance of [employer],an FDA approved computer aided detection system for mammography. The lifetime Tyrer-Cuzick score is 16 % Due to the density of the breasts or Tyrer Cuzick score of 20% or greater, MRI/whole breast screening ultrasound is warranted. Negative x-ray reports should not delay surgical consultation if a dominant or clinically suspicious mass is present. Not all breast cancers can be identified by mammography. Therefore, we recommend that you continue to perform regular breast self-examination and physical examination and then promptly contact your physician of any concerns or changes. Adenosis and dense breasts may obscure an underlying neoplasm. Assessment: BI-RADS/ACR category 2 mammogram. Benign Findings. Recommendation Routine screening mammogram of both breasts in 1 year. Electronically Signed By: Srikanth Reddy DO 11/29/20 8399
--- NOTE | 2020-11-29 14:01 | DEXAMM ---
INDICATION: ASYMPOTMATIC MENOPAUSE. COMPARISON: May 19, 2014. TECHNIQUE: Bone density was measured using dual-energy x-ray absorptionmetry (DEXA). FINDINGS: AP SPINE L1-L4 BMD 1.408 g/cm2 Young Adult T-Score 1.7 Age Matched Z-Score 2.8. LT FEMUR, TOTAL BMD 1.273 g/cm2 Young Adult T-Score 2.1 Age Matched Z-Score 3.0. LT NECK BMD 1.249 g/cm2 Young Adult T-Score 1.5 Age Matched Z-Score 2.7. RT FEMUR, TOTAL BMD 1.344 g/cm2 Young Adult T-Score 2.7 Age Matched Z-Score 3.5. RT NECK BMD 1.393 g/cm2 Young Adult T-Score 2.6 Age Matched Z-Score 3.7. IMPRESSION: There is normal bone density of the spine. There is normal bone density of the left hip. There is normal bone density of the right hip. The density of the spine has decreased 0.1% since the initial exam on May 19, 2014. The density of the left hip has decreased 1.7% since initial exam on May 19, 2014. The density of the right hip has decreased 4.1% since the initial exam on May 19, 2014. FOLLOW-UP: Recommendation for the next bone density exam: 5-10 years. <Electronically signed by Go Brooke > 11/29/20 7446
== END ==
LOC: M WHC 10:14
PROVIDERS: ATTEND Nurse Practitioner Family
DX: Z12.31 Encounter for screening mammogram for malignant neoplasm of breast (principal); Z78.0 Asymptomatic menopausal state; Z13.820 Encounter for screening for osteoporosis

== ENCOUNTER → 2021-04-25 | Outpatient (REF) | payer MEDICARE, MEDICAID ==
[~2021-04-25] MED LIST changes: -MONT10TA10 PO; +MONT10TA97 PO; +OMEP-173 PO
[2021-04-25 11:37] LABS: BASO # 0.1 10^3/uL (0.0-0.2); BASO % 0.8 % (0.0-1.0); EOS # 0.2 10^3/uL (0.0-0.5); EOS % 2.1 % (0.0-3.0); HEMATOCRIT 36.8 % (36.0-47.0); HEMOGLOBIN 12.3 g/dl (12.0-15.5); LYMPH # 2.5 10^3/uL (1.5-5.0); LYMPH % 32.7 % (24.0-44.0); MEAN CORPUSCULAR HEMOGLOBIN 31.5 pg (27.0-33.0); MEAN CORPUSCULAR HGB CONC 33.4 g/dl (32.0-36.5); MEAN CORPUSCULAR VOLUME 94.4 fl (80.0-96.0); MONO # 1.3 10^3/uL (0.0-0.8); MONO % 17.3 % (2.0-8.0); NEUTROPHILS # 3.6 10^3/uL (1.5-8.5); NEUTROPHILS % 46.7 % (36.0-66.0); PLATELET COUNT, AUTOMATED 327 10^3/uL (150-450); WHITE BLOOD COUNT 7.6 10^3/uL (4.0-10.0)
[2021-04-25 12:09] LABS: ALBUMIN 3.5 GM/DL (3.2-5.2); ALT/SGPT 19 U/L (12-78); BILIRUBIN,TOTAL 0.1 MG/DL (0.2-1.0); BLOOD UREA NITROGEN 12 MG/DL (7-18); CALCIUM LEVEL 9.8 MG/DL (8.5-10.1); CARBON DIOXIDE LEVEL 29 MEQ/L (21-32); CHLORIDE LEVEL 103 MEQ/L (98-107); CHOLESTEROL LEVEL 245 MG/DL (<200); CHOLESTEROL RISK RATIO 3.356 (<5); CREATININE FOR GFR 0.64 MG/DL (0.55-1.30); GLOMERULAR FILTRATION RATE > 60.0 (>51); GLUCOSE, FASTING 67 MG/DL (70-100); HDL CHOLESTEROL 73 MG/DL (>40); LDL CHOLESTEROL 160 MG/DL (<100); NON-HDL-C 172 MG/DL; POTASSIUM SERUM 4.2 MEQ/L (3.5-5.1); SODIUM LEVEL 138 MEQ/L (136-145); TOTAL 25(OH) VITAMIN D 62.2 NG/ML (30.0-100.0); TOTAL PROTEIN 7.3 GM/DL (6.4-8.2); TRIGLYCERIDES LEVEL 60 MG/DL (<150)
== END ==
LOC: M SFHCCLAY 08:50
PROVIDERS: ATTEND Nurse Practitioner Family
DX: E78.2 Mixed hyperlipidemia (principal); E55.9 Vitamin D deficiency, unspecified; E03.9 Hypothyroidism, unspecified; G40.909 Epilepsy, unspecified, not intractable, without status epilepticus; F32.9 Major depressive disorder, single episode, unspecified; R05.9 Cough, unspecified; Z79.899 Other long term (current) drug therapy

== ENCOUNTER → 2021-12-27 | Outpatient (CLI) | payer MEDICARE, MEDICAID ==
[~2021-12-27] MED LIST changes: -ACET1TAB16 PO; +ACET300T48 PO
== END ==
LOC: M WHC 10:40
PROVIDERS: ATTEND Nurse Practitioner Family
DX: Z12.31 Encounter for screening mammogram for malignant neoplasm of breast (principal)

== ENCOUNTER → 2022-05-20 | Outpatient (REF) | payer MEDICARE, MEDICAID ==
[2022-05-20 11:45] LABS: BASO # 0.1 10^3/uL (0.0-0.2); BASO % 1.1 % (0.0-1.0); EOS # 0.5 10^3/uL (0.0-0.5); EOS % 5.3 % (0.0-3.0); HEMATOCRIT 36.5 % (36.0-47.0); LYMPH # 2.8 10^3/uL (1.5-5.0); LYMPH % 30.8 % (24.0-44.0); MEAN CORPUSCULAR HEMOGLOBIN 32.3 pg (27.0-33.0); MEAN CORPUSCULAR HGB CONC 32.9 g/dl (32.0-36.5); MEAN CORPUSCULAR VOLUME 98.1 fl (80.0-96.0); MONO % 17.5 % (2.0-8.0); NEUTROPHILS # 4.2 10^3/uL (1.5-8.5); PLATELET COUNT, AUTOMATED 291 10^3/uL (150-450); RED BLOOD COUNT 3.72 10^6/uL (4.00-5.40); WHITE BLOOD COUNT 9.2 10^3/uL (4.0-10.0)
[2022-05-20 11:53] LABS: ALBUMIN 3.7 G/DL (3.2-5.2); ALKALINE PHOSPHATASE 105 U/L (46-116); ALT/SGPT 13 U/L (7.0-40); AST/SGOT 23 U/L (<34); BILIRUBIN,TOTAL 0.4 MG/DL (0.3-1.2); BLOOD UREA NITROGEN 18 MG/DL (9-23); CALCIUM LEVEL 9.2 MG/DL (8.3-10.6); CARBON DIOXIDE LEVEL 30 MMOL/L (20-31); CHLORIDE LEVEL 102 MMOL/L (98-107); CHOLESTEROL LEVEL 244 MG/DL (<200); CHOLESTEROL RISK RATIO 2.94 (<5); CREATININE FOR GFR 0.76 MG/DL (0.55-1.30); FREE T4 0.95 NG/DL (0.89-1.76); GLOMERULAR FILTRATION RATE > 60.0 (>45); GLUCOSE, FASTING 75 MG/DL (74-106); HDL CHOLESTEROL 82.8 MG/DL (>40); NON-HDL-C 161.2 MG/DL; POTASSIUM SERUM 4.2 MMOL/L (3.5-5.1); SODIUM LEVEL 135 MMOL/L (136-145); THYROID STIMULATING HORMONE 2.245 uIU/ML (0.55-4.78); TOTAL 25(OH) VITAMIN D 71.3 NG/ML (20.0-100.0); TOTAL PROTEIN 7.2 G/DL (5.7-8.2); TRIGLYCERIDES LEVEL 66 MG/DL (<150)
[2022-05-20 12:04] LABS: HEMOGLOBIN A1c 4.8 % (4.0-6.0)
[2022-05-20 12:12] LABS: CREATININE, URINE 9.8 MG/DL
[2022-05-20 12:43] LABS: MONO # 1.6 10^3/uL (0.0-0.8)
== END ==
LOC: M SFHCCLAY 07:41
PROVIDERS: ATTEND Nurse Practitioner Family
DX: E03.9 Hypothyroidism, unspecified (principal); E55.9 Vitamin D deficiency, unspecified; F32.9 Major depressive disorder, single episode, unspecified; G40.909 Epilepsy, unspecified, not intractable, without status epilepticus; F71 Moderate intellectual disabilities; E78.5 Hyperlipidemia, unspecified; J30.9 Allergic rhinitis, unspecified; K21.9 Gastro-esophageal reflux disease without esophagitis; R05.9 Cough, unspecified; Z12.31 Encounter for screening mammogram for malignant neoplasm of breast

== ENCOUNTER → 2022-05-29 | Outpatient (CLI) | payer MEDICARE, MEDICAID | LOC: M CLY 10:19 | PROVIDERS: ATTEND Nurse Practitioner Family | DX: M17.0 Bilateral primary osteoarthritis of knee (principal) ==

== ENCOUNTER → 2022-12-10 | Outpatient (REF) | payer MEDICARE, MEDICAID | LOC: M SFHCCAPE 17:03 | PROVIDERS: ATTEND Physician Assistant Medical | DX: R35.0 Frequency of micturition (principal) ==

== ENCOUNTER → 2023-01-15 | Outpatient (CLI) | payer MEDICARE, MEDICAID | LOC: M WHC 08:31 | PROVIDERS: ATTEND Nurse Practitioner Family | DX: Z12.31 Encounter for screening mammogram for malignant neoplasm of breast (principal) ==

== ENCOUNTER → 2023-02-04 | Outpatient (REF) | payer MEDICARE, MEDICAID | LOC: M SFHCCLAY 17:19 | PROVIDERS: ATTEND Physician Assistant | DX: N39.0 Urinary tract infection, site not specified (principal) ==

== ENCOUNTER → 2023-04-10 | Outpatient (REF) | payer MEDICARE, MEDICAID ==
[2023-04-10 12:55] LABS: BASO # 0.1 10^3/uL (0.0-0.2); BASO % 0.6 % (0.0-1.0); EOS # 0.1 10^3/uL (0.0-0.5); EOS % 1.3 % (0.0-3.0); HEMATOCRIT 37.3 % (36.0-47.0); LYMPH # 2.3 10^3/uL (1.5-5.0); LYMPH % 24.6 % (24.0-44.0); MEAN CORPUSCULAR HEMOGLOBIN 35.1 pg (27.0-33.0); MEAN CORPUSCULAR HGB CONC 34.9 g/dl (32.0-36.5); MEAN CORPUSCULAR VOLUME 100.8 fl (80.0-96.0); MONO # 1.7 10^3/uL (0.0-0.8); MONO % 18.3 % (2.0-8.0); NEUTROPHILS # 5.1 10^3/uL (1.5-8.5); NEUTROPHILS % 54.8 % (36.0-66.0); PLATELET COUNT, AUTOMATED 319 10^3/uL (150-450); WHITE BLOOD COUNT 9.4 10^3/uL (4.0-10.0)
[2023-04-10 13:00] LABS: THYROID STIMULATING HORMONE 4.152 uIU/ML (0.55-4.78); TOTAL 25(OH) VITAMIN D 117.6 NG/ML (20.0-100.0)
[2023-04-10 13:01] LABS: FREE T4 1.08 NG/DL (0.89-1.76)
[2023-04-10 13:04] LABS: ALBUMIN 3.6 G/DL (3.2-5.2); ALKALINE PHOSPHATASE 96 U/L (46-116); ALT/SGPT 18 U/L (7.0-40); AST/SGOT 24 U/L (<34); BILIRUBIN,TOTAL 0.3 MG/DL (0.3-1.2); BLOOD UREA NITROGEN 14 MG/DL (9-23); CALCIUM LEVEL 9.9 MG/DL (8.3-10.6); CARBON DIOXIDE LEVEL 29 MMOL/L (20-31); CHLORIDE LEVEL 103 MMOL/L (98-107); CHOLESTEROL LEVEL 249 MG/DL (<200); CHOLESTEROL RISK RATIO 3.51 (<5); CREATININE FOR GFR 0.68 MG/DL (0.55-1.30); GLOMERULAR FILTRATION RATE > 60.0 (>45); GLUCOSE, FASTING 78 MG/DL (74-106); HDL CHOLESTEROL 70.9 MG/DL (>40); LDL CHOLESTEROL 163.5 MG/DL (<100); NON-HDL-C 178.1 MG/DL; POTASSIUM SERUM 4.4 MMOL/L (3.5-5.1); SODIUM LEVEL 138 MMOL/L (136-145); TOTAL PROTEIN 7.1 G/DL (5.7-8.2); TRIGLYCERIDES LEVEL 73 MG/DL (<150)
== END ==
LOC: M SFHCCLAY 08:28
PROVIDERS: ATTEND Nurse Practitioner Family
DX: Z00.00 Encounter for general adult medical examination without abnormal findings (principal); F32.9 Major depressive disorder, single episode, unspecified; G40.909 Epilepsy, unspecified, not intractable, without status epilepticus; E03.9 Hypothyroidism, unspecified; E55.9 Vitamin D deficiency, unspecified; F71 Moderate intellectual disabilities; E78.5 Hyperlipidemia, unspecified; J45.909 Unspecified asthma, uncomplicated; Z79.899 Other long term (current) drug therapy

== ENCOUNTER 2023-06-12 09:10 | Day surgery (SDC) | payer MEDICARE, MEDICAID ==
[~2023-06-12] VITALS: Ht 165.1 cm; Wt 81.6 kg
[~2023-06-12 09:10] MED LIST changes: +ALBU8.5H; +CARA1TAB6 PO; +IRON65TA2 PO; +LEVO150T7 PO; +NS 1,000 ML IV ONE; +OMEP40CA5 PO; +PHEN32.44 PO; +POTA99CA2 PO; +SYMB80INH; +THERTAB52 PO; +VITA100093 PO; +ZOLO100T PO
[2023-06-12] MEDS ORDERED: LIDOCAINE 2% 100MG/5ML SDV (FOR ANES.) As Ordered ONE (09:44)
[2023-06-12] MEDS ORDERED: fentaNYL 100 MCG/2 ML INJECTION As Ordered ONE (09:45)
[2023-06-12] MEDS ORDERED: propofoL 500 MG/50 ML VIAL As Ordered ONE (09:46)
[2023-06-12 12:03] VITALS: BP 171/73; TEMP 95.7; O2SAT 94
== END 2023-06-12 12:00 | disposition home or self-care (01) ==
LOC: M OPP 09:10
PROVIDERS: ATTEND Surgery
DX: Z12.11 Encounter for screening for malignant neoplasm of colon (principal); Q43.8 Other specified congenital malformations of intestine; K21.00 Gastro-esophageal reflux disease with esophagitis, without bleeding; K22.89 Other specified disease of esophagus; R10.13 Epigastric pain; Z79.52 Long term (current) use of systemic steroids; Z79.890 Hormone replacement therapy; Z79.899 Other long term (current) drug therapy; Z88.8 Allergy status to other drugs, medicaments and biological substances; Z88.0 Allergy status to penicillin; Z91.048 Other nonmedicinal substance allergy status
CPT/HCPCS: 43239; 88305; G0121; J3010

== ENCOUNTER → 2024-04-07 | Outpatient (REF) | payer MEDICARE, MEDICAID ==
[~2024-04-07] MED LIST changes: -AZEL0.055; +AZEL1SPR4; -NS 1,000 ML IV ONE
[2024-04-07 18:53] LABS: PHENOBARBITAL LEVEL 27.9 UG/ML (15.0-40.0)
[2024-04-07 18:56] LABS: ALBUMIN 3.7 G/DL (3.2-5.2); ALKALINE PHOSPHATASE 115 U/L (35-104); ALT/SGPT 9 U/L (7.0-40); AST/SGOT 20 U/L (<34); BILIRUBIN,TOTAL 0.4 MG/DL (0.3-1.2); BLOOD UREA NITROGEN 12 MG/DL (9-23); CALCIUM LEVEL 10.1 MG/DL (8.3-10.6); CARBON DIOXIDE LEVEL 28 MMOL/L (20-31); CHLORIDE LEVEL 102 MMOL/L (98-107); CHOLESTEROL LEVEL 269 MG/DL (<200); CREATININE FOR GFR 0.62 MG/DL (0.55-1.30); GLOMERULAR FILTRATION RATE > 60.0 (>45); GLUCOSE, FASTING 85 MG/DL (74-106); HDL CHOLESTEROL 74.7 MG/DL (>40); LDL CHOLESTEROL 176.5 MG/DL (<100); NON-HDL-C 194.3 MG/DL; POTASSIUM SERUM 4.8 MMOL/L (3.5-5.1); SODIUM LEVEL 138 MMOL/L (136-145); TOTAL PROTEIN 7.5 G/DL (5.7-8.2); TRIGLYCERIDES LEVEL 89 MG/DL (<150)
[2024-04-07 18:57] LABS: THYROID STIMULATING HORMONE 4.093 uIU/ML (0.55-4.78)
[2024-04-07 18:59] LABS: TOTAL 25(OH) VITAMIN D 108.5 NG/ML (20.0-100.0)
[2024-04-07 19:00] LABS: FREE T4 1.04 NG/DL (0.89-1.76)
[2024-04-07 19:08] LABS: BASO % 0.4 % (0.0-1.0); EOS # 0.1 10^3/uL (0.0-0.5); EOS % 0.7 % (0.0-3.0); HEMATOCRIT 36.1 % (36.0-47.0); HEMOGLOBIN 12.3 g/dl (12.0-15.5); LYMPH # 2.3 10^3/uL (1.5-5.0); LYMPH % 21.7 % (24.0-44.0); MEAN CORPUSCULAR HEMOGLOBIN 33.8 pg (27.0-33.0); MEAN CORPUSCULAR HGB CONC 34.1 g/dl (32.0-36.5); MEAN CORPUSCULAR VOLUME 99.2 fl (80.0-96.0); MONO # 1.5 10^3/uL (0.0-0.8); MONO % 14.6 % (2.0-8.0); NEUTROPHILS # 6.5 10^3/uL (1.5-8.5); NEUTROPHILS % 62.3 % (36.0-66.0); PLATELET COUNT, AUTOMATED 339 10^3/uL (150-450); RED BLOOD COUNT 3.64 10^6/uL (4.00-5.40); WHITE BLOOD COUNT 10.5 10^3/uL (4.0-10.0)
[2024-04-07 19:49] LABS: HEMOGLOBIN A1c 4.9 % (4.0-6.0)
== END ==
LOC: M SFHCCLAY 08:58
PROVIDERS: ATTEND Nurse Practitioner Family
DX: Z00.00 Encounter for general adult medical examination without abnormal findings (principal); F32.9 Major depressive disorder, single episode, unspecified; G40.909 Epilepsy, unspecified, not intractable, without status epilepticus; E03.9 Hypothyroidism, unspecified; E55.9 Vitamin D deficiency, unspecified; F71 Moderate intellectual disabilities; E78.5 Hyperlipidemia, unspecified; J45.909 Unspecified asthma, uncomplicated